=== PATIENT | female | born 1960 | race Caucasian/White ===

== ENCOUNTER → 2021-05-12 11:01 | Outpatient (CLI) | payer OTHER, SELFPAY ==
[2021-05-12 15:05] LABS: COVID19 -Nasal RAPID Negative (Negative)
== END ==
PROVIDERS: Visit Provider Nurse Practitioner Family
DX: Z01.812 Encounter for preprocedural laboratory examination (principal); Z20.822 Contact with and (suspected) exposure to COVID-19
CPT/HCPCS: 87635

== ENCOUNTER 2021-05-13 06:00 | Observation (INO) | payer OTHER, SELFPAY ==
[2021-05-06 07:12] VITALS: BMI 25.8
[2021-05-13] VITALS (11 sets, daily range): BP systolic 121–165; BP diastolic 69–92; PULSE 60–76; RESP 12–19; TEMP 36.4–36.7; O2SAT 96–100; BMI 25.8
--- NOTE | 2021-05-13 06:30 | DI.RAD.S_ITS ---
PROCEDURE: XR HIP W PEL IF DONE LT 2V INDICATIONS: MICHELLE intraoperative TECHNIQUE: Four nondiagnostic intraoperative fluoroscopic views of the left hip COMPARISON: None. FINDINGS: Nondiagnostic intraoperative fluoroscopic views of the left hip demonstrate left total hip arthroplasty changes. Hardware appears to be in appropriate alignment. No periprosthetic lucency or fracture identified. IMPRESSION: Expected appearance of left MICHELLE. Dictated by: Jose Antonio Jane M.D. on 05/13/2021 at 11:05 Approved by: Jose Antonio Jane M.D. on 05/13/2021 at 11:06
[2021-05-13] MEDS: VANCOMYCIN 1,000 MG/200 ML PIGGYBACK 200 MG IV (07:00)
[2021-05-13] MEDS: CELECOXIB 200 MG CAPSULE PO (07:05)
[2021-05-13] MEDS: ACETAMINOPHEN 325 MG TABLET 975 MG PO (07:05)
[2021-05-13] MEDS: LACTATED RINGERS 1,000 ML 84 ML IV ×2 (07:20→09:09)
--- NOTE | 2021-05-13 07:44 | PM.PREOP ---
Pre-operative Note Interval Note History & Physical reviewed/Exam performed by Physician: Yes Changes to H&P: No
--- NOTE | 2021-05-13 07:45 | PM.PREOP ---
Pre-operative Note COVID-19 COVID-19 status: Negative Interval Note History & Physical reviewed/Exam performed by Physician: Yes Changes to H&P: No
--- NOTE | 2021-05-13 07:45 | PM.OP.1 ---
Operative Date/Time/Diagnoses Date of procedure: 05/13/21 Time of procedure: 07:55 Pre-op diagnosis: left hip OA Post-op diagnosis: same Procedure & Clinicians Same procedure as scheduled: Yes Surgeon: Halima Villanueva Performance Reporter: Shiloh Fuller Anesthesia Type: General and Spinal Operative Notes Findings: Severe OA, good stability, adequate bone Closure Type: primary Specimen(s): none sent Prosthetic devices, grafts, tissues, transplants, or devices: Villanueva and nephew standard anthology size 7, 52 mm R3 cup, neutral poly liner, +0 36 mm Oxinium head Estimated Blood Loss (mL): 250 Blood products transfused: none Procedure in detail: The patient was brought to the operating room. Patient was carefully positioned in the supine position. Time-out was performed and antibiotics were given. Anesthesia was induced. She was positioned in the on the table in order to allow hyperextension of the hip. The Left lower extremity was prepped and draped in a standard sterile fashion. An anterior left hip incision was made 1 fingerbreadth lateral to the anterior superior iliac spine and extended distally towards the greater trochanter. Dissection was carried out through skin and subcutaneous tissues. The skin and subcutaneous tissues were carefully injected with Lidocaine with epi. Superficial hemostasis was achieved. The fascia over the tensor fascia rj was defined and incised with a knife. Two Allis clamps were used to grasp the fascia. Tensor fascia rj was retracted laterally. A gelpi retractor was placed. Dissection was carried out down along the neck. The circumflex vessels were carefully identified and cauterized with the Aqua Mantis. There was good visualization of the femoral neck. A Cobra was placed superior to the neck and the gluteus fibers were carefully stripped from that superior aspect of the capsule. A 2nd retractor was placed along the inferior aspect of the neck. The rectus insertion along the capsule was partially released. A 3rd retractor that was then gently placed over the rim of the acetabulum under the rectus. Capsule was carefully incised and released from the intertrochanteric line circumferentially superior to the mid sagittal line and inferiorly to the mid sagittal line until the lesser trochanter was palpable. A tag stitch was placed both in the superior and inferior limb of the capsular insertion. Along the acetabulum capsule was also released up to the mid sagittal 12:00 position. A portion of the labrum was resected. A saw was used to perform an osteotomy at the level of the intertrochanteric line and the junction of the superior femoral neck leaving approximately 1 finger breath of residual inferior neck above the lesser trochanter. A 2nd cut was made along the femoral neck at the base of the head and a napkin ring of neck was removed. Corkscrew was placed in the femoral head and the head was removed without difficulty. Retractors were then repositioned around the acetabulum. Residual labrum was resected and additional osteophytes were removed. A reamer that was 4 mm below the templated size was placed by hand in the acetabulum and it was reamed to centralize the acetabulum. It was then reamed up to 2 under the templated size and fluoroscopy was brought in to confirm the position of the reaming and depth of reaming. I reamed 1 under the anticipated size and touched the rim with line to line reaming. A trial cup was placed and noted that it was appropriately sized and fluoroscopy confirmed position and depth. The component was open and inserted without difficulty fluoroscopic imaging was used to confirm that the cup had been adequately seated and was well positioned. It was further stabilized with a screw. Neutral poly liner was placed. The cup was tested and noted to be stable. Attention was then directed to the femur. The femur was gently hyperextended additional capsular release was performed as needed in order to allow adequate visualization of the proximal femur with elevation of the femur. Patient was placed in a hyperextended slightly adducted position with maximum external rotation. Box osteotome was used to check for any residual neck as well as sclerotic bone along the trochanter. Carlyle pepper was placed in the femur. Additional broaching was performed. Canal finder was used to determine the alignment of the canal and position. Size 1 broach was placed. The canal was then appropriately broached up to the templated size as long as there was adequate stability of the broach and serial advancement of the broach without excessive impingement. Specific attention was directed at avoiding varus attempting to direct the distal aspect of the broach more anteriorly and avoiding excessive anteversion. Trial reduction showed acceptable range of motion, good stability, no posterior impingement, restorationist of leg length and appropriate lateral shuck. I also hyperflexed the hip and checked that there was no impingement anteriorly and there was good stability with flexion, adduction and internal rotation. Marcaine and Exparel were injected. The stem was placed without difficulty. Repeat trial reduction and x-ray showed acceptable overall position, length, and no evidence of the femoral fracture. Final head was placed. Wound was meticulously irrigated with normal saline. The hip was reduced and additional Exparel and Marcaine were injected. The capsule was closed with interrupted nonabsorbable sutures. The fascia of the tensor was closed with interrupted and running Vicryl. No drain was placed. Any tensor fascia rj muscle that appeared to be contused or injured which was a minimal amount was carefully resected. Capsule around the tensor was injected with Exparel and Marcaine. The skin was closed with barbed stitches for the subcutaneous tissue and skin. We also used surgical glue. The wound was dressed sterilely. Brief Betadine soak was also used and was meticulously irrigated with normal saline. Patient was transferred to recovery room in satisfactory condition. Complications: none Post-operative Condition: stable Disposition: Acute Care Plan for aftercare: The patient will be maintained on a standard total hip replacement protocol with weight bearing as tolerated and anterior hip precautions. The patient will receive Aspirin and sequential compression devices for DVT prophylaxis. The patient will be discharged home when safe for the home environment.
[2021-05-13] MEDS: CEFAZOLIN 2 GM/20 ML SYRINGE IV ×2 (08:10→15:58)
[2021-05-13] MEDS: TRANEXAMIC ACID 1,000 MG VIAL 2000 MG INJ ×2 (08:12→10:07)
--- NOTE | 2021-05-13 08:38 | SUR.OPER ---
Supine on padded [place] table with bilateral legs secured in padded positioning boots and suspended in positioning spars, operative leg in traction per surgeon. Head on one pillow. Arm on non-operative side secured on padded armboard <90 degrees abduction. Arm on operative side padded and resting across chest then secured with tape over sheet. Padded perineal post in place per surgeon.
[2021-05-13] MEDS: BUPIVACAINE LIPOSOME 266 MG/20 ML VIAL INJ (08:44)
[2021-05-13] MEDS: BUPIVACAINE 0.25% (PF) 60 ML, EPINEPHrine 0.3 MG INJ (08:45)
--- NOTE | 2021-05-13 10:00 | DI.RAD.S_ITS ---
PROCEDURE: XR HIP W PEL IF DONE LT 2V INDICATIONS: LEFT TOTAL HIP TECHNIQUE: AP pelvis and lateral view of the left hip acquired. COMPARISON: [facility], MARIELA, XR HIP W PEL IF DONE LT 2V, 05/13/2021, 10:12. FINDINGS: Bones: Patient is status post total left hip arthroplasty, with hardware components in expected positions. The hip joint appears congruent. The visualized bony structures appear intact. Severe degenerative arthritis of the right hip. Soft tissues: Overlying postoperative changes are noted. No suspicious soft tissue densities. IMPRESSION: Expected immediate postoperative appearance, status post total left hip arthroplasty. Severe degenerative arthritis of the right hip. Dictated by: Milan Parikh M.D. on 05/13/2021 at 12:55 Approved by: Milan Parikh M.D. on 05/13/2021 at 12:56
--- NOTE | 2021-05-13 11:08 | SUR.PHASEI ---
Addendum entered by Tegan Gooden R.N. 05/13/21 11:09: Pt transported in stable condition by ZAHEER Wilhelm and KATT Madison to room 217 Original Note: Report to Graeme Hager
[2021-05-13] MEDS: LACTATED RINGERS 1,000 ML 125 ML IV ×2 (11:40→19:58)
[2021-05-13] MEDS: OXYCODONE IR 5 MG TABLET PO (11:56)
[2021-05-13] MEDS: ONDANSETRON 4 MG ODT PO ×2 (11:56→16:00)
[2021-05-13] MEDS: IBUPROFEN 400 MG TABLET PO ×2 (12:48→20:49)
[2021-05-13] MEDS: TRAMADOL 50 MG TABLET PO (12:48)
[2021-05-13] MEDS: OXYCODONE IR 10 MG TABLET PO (14:21)
[2021-05-13] MEDS: ACETAMINOPHEN 325 MG TABLET 650 MG PO ×2 (14:21→20:49)
--- NOTE | 2021-05-13 14:45 | PT.IIE ---
Current Diagnoses Bilateral primary osteoarthritis of hip (05/13/21) Surgery Performed Operation Date: 05/13/21 07:45 Actual Procedures p Total Hip Arthroplasty/Anterior Approach(Left) - Halima Villanueva MD Medical History (Last Updated 05/06/21 @ 07:41 by Laney Betts RN) Anesthesia Depression HTN (hypertension) Osteoarthritis Physical Therapy Inpatient Evaluation/Re-Eval M1 PT/OT-IP Prior Functional Status Start: 05/13/21 12:10 Freq: NEEDED Status: Active Protocol: Document 05/13/21 14:45 AW (Rec: 05/13/21 15:10 AW [id number]) Medical Review Prior Functional Status Medical History Reviewed Yes Communication WNL Mobility and Gait Pt is independently mobile without assistive device. Activities of Daily Living and IADL's Independent with all ADL and IADL's Prior Functional Level (Other details) Pt was pushed by her dog and fell from her deck in 2019. She severely fractured her proximal humerus. She was treated surgically and PT was successful. It's better than before. Pt denies any falls since that time. Social History Household Members spouse Living Arrangements House Number of Floors (Floors) One Floor Number of Stairs To Enter/Railing? 3 ESTEE with no rail at the front door. 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 She has an adjustable bed. Pt lives in [place] with her spouse, Prince. Spouse has taken 5 weeks off work to assist the pt. 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 M2 PT-IP Current Condition Start: 05/13/21 12:10 Freq: NEEDED Status: Active Protocol: Document 05/13/21 14:45 AW (Rec: 05/13/21 15:10 AW [id number]) Physical Therapy Current Condition Current Condition Evaluation Date 05/13/21 Treatment Diagnosis L MICHELLE with anterior approach; impaired mobility and gait Onset Date 05/13/21 M3 PT-IP Subjective Start: 05/13/21 12:10 Freq: NEEDED Status: Active Protocol: Document 05/13/21 14:45 AW (Rec: 01/11/22 15:10 AW [id number]) Subjective Physical Therapy Visit Type Type Initial Evaluation Visit Start Time 14:18 Visit Stop Time 14:45 Total Visit Minutes 27 Notes Pt's spouse was present and attentive throughout. Number of TURBINATED BONE GRINDER Visits 0 Physical Therapy Visit Comments Patient Comments Pt is feeling uncomfortable in the bed and would like to get up. Patient Goals Return home with spouse support. Therapy Pain Assessment Pain When Pain Assessed During Mobility Pain Present Pain Present Pain Reported Location Left Hip Intensity 5 Pain Management Techniques Apply Cold,Re-positioning, Timing of Activity with Medications M4 PT-IP Mobility and Gait Start: 05/13/21 12:10 Freq: NEEDED Status: Active Protocol: Document 05/13/21 14:45 AW (Rec: 05/13/21 15:10 AW [id number]) PT-Bed Mobility Assessment Supine to Sit Supine to Sit Standby Assistance,Head of Bed Elevated Scooting Scooting to Edge of Bed Standby Assistance PT-Transfer Assessment Sit to and From Stand Sit to and from Stand Contact Guard Assistance,1 Person Assistance,Use of Upper Extremities Equipment Transfer Assistive Device Gait Belt,Front Wheeled Walker Orthotic/Prosthetic Devices or Brace: No Transfers Transfer Destination Bed,Chair Transfer Technique Stand Step Pivot Transfer Ability Level of Assist Standby Assistance Comments Mobility Comments Pt was lying in the bed as PT arrived. BP supine was 148/78 HR 68 SpO2 99% on room air. PT educated pt on anterior hip precautions including bed mobility. Pt completed supine to sit SBA, exiting the bed to her right. She usually exits to her left but states she can easily change her bed setup at home. She stood CGA and steadied herself with FWW. She shifted weight laterally as PT educated on WBAT. Pt walked around the room a total of 25 feet CGA and then transferred to the chair SBA. She complained of some lightheadedness. BP was stable at 144/80 HR 67. Pt completed sit to stand SBA and transferred to sitting EOB SBA. Sit <> supine SBA and then pt requested to sit EOB. Pt was left with ice packs applied to anterior hip, bed alarm on least sensitive setting, call light and tray table in reach. Her spouse remained in the room. Gait Assessment Gait Gait Assistance Required: Contact Guard Assist Distance (Feet) 25 Able to Maintain Weight Bearing Status Yes During Gait Assistive Devices Assistive Device Gait Belt,Front Wheeled Walker Orthotic/Prosthetic Devices or Brace: No Gait Deviations General Gait Pattern Antalgic,Decreased Stride Length,Decreased Feet Clearance,Flexed Trunk,Step-to Gait Factors Limiting Gait Function Factors Limiting Gait Function Decreased Strength,Limited Range of Motion,Pain Comments Gait Comments Pt ambulated safely with FWW and short step length to avoid excessive hip extension. She was careful to lead with right foot when backing up to the chair. Stair Climbing Assessment Comments Stair Climbing Comments Not assessed. PT-Balance Assessment Sitting Balance and Reactions Static Sitting Balance Ability Normal Dynamic Sitting Balance Ability Good Standing Balance and Reactions Static Standing Balance Ability Good Dynamic Standing Balance Ability Good Device Used FWW M5 PT-IP Objective Assessments Start: 05/13/21 12:10 Freq: NEEDED Status: Active Protocol: Document 05/13/21 14:45 AW (Rec: 05/13/21 15:10 AW [id number]) Orientation Orientation/Cognition Level of Alertness Alert Orientation Name,Day of Week,Place, Situation Language Function Ability No Deficits Noted Safety Awareness Understands Safety Issues Memory Description No Deficits Noted Gross Range of Motion Lower Extremity ROM Assessment Left Impaired Strength Lower Extremity Strength Assessment Left Impaired Comments Strength Comments RLE grossly 4+/5 to 5/5 Sensation Assessment Sensation Gross Sensation WNL Comments Sensation Comments Pt denied sensation disturbance BLE. M6 PT-IP Treatment Start: 05/13/21 12:10 Freq: NEEDED Status: Active Protocol: Document 05/13/21 14:45 AW (Rec: 05/13/21 15:10 AW [id number]) Physical Therapy Treatment Exercises Exercises Ankle Pumps,Gluteal Sets,Heel Slides Education Education Provided Precautions,Weight Bearing Status,Post-Op Packet,Safety Other Treatments Other Treatment Performed Educated pt and her spouse on PT plan of care, weightbearing status, anterior hip precautions, and safe use of FWW. M7 PT-IP Assessment and Plan Start: 05/13/21 12:10 Freq: NEEDED Status: Active Protocol: Document 05/13/21 14:45 AW (Rec: 05/13/21 15:10 AW [id number]) PT Summary Assessment and Plan Potential Rehabilitation Potential Good Status of Condition at Evaluation Evolving Summary Impairments Pain,ROM,Strength,Balance,Bed Mobility,Transfers,Gait Assessment Summary Priscilla is an active 61 yo woman seen for PT evaluation on POD0 following L MICHELLE with anterior approach. 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 Her has taken time off work to assist her at discharge. She required SBA /CGA for mobility with FWW on assessment and was limited mildly by nausea. PT anticipates she will progress her mobility during her hospital stay and be safe to discharge home with assist and outpatient PT once medically stable. Goals Bed Mobility Goal Independent Transfer Goal Independent,Front Wheeled Walker Gait Goal Independent,Front Wheel Walker Gait Distance 150 Other Goals - up/down 4 steps with R rail ascending SBA Days to Meet Goals 2 Frequency of Treatment Frequency Of Treatment Twice a Day Treatment Plan Physical Therapy Treatment Plan Bed Mobility Training,Transfer Training,Gait Training, Therapeutic Exercise,Balance Retraining,Post Op Education, Discharge Planning,Hot or Cold Pack Other Recommendations and Next Treatment review precautions; ther ex; Focus gait training with FWW; stairs with participating Precautions Anterior Hip Precautions No Hip Extension,No Hip External Rotation Weight Bearing Status Weight Bearing Status Weight Bear as Tolerated Recommendations To Nursing Amount of Assist Needed Standby Assistance,1 Person Assist Discharge Recommendations PT Discharge Recommendations Home with Assistance, Outpatient PT Transportation Needs at Discharge Private Vehicle
[2021-05-13] MEDS: METOCLOPRAMIDE 10 MG/2 ML INJ IV (16:56)
[2021-05-13] MEDS: DOCUSATE 100 MG CAPSULE PO (20:49)
[2021-05-13] MEDS: ASPIRIN EC 81 MG TABLET PO (20:49)
[2021-05-13] MEDS: SODIUM CHLORIDE 0.9% FLUSH 10 ML IV (20:49)
[2021-05-14] MEDS: CEFAZOLIN 2 GM/20 ML SYRINGE IV (00:21)
[2021-05-14] MEDS: IBUPROFEN 400 MG TABLET PO ×3 (00:21→09:41)
[2021-05-14 00:25] VITALS: BP 122/70; PULSE 67; RESP 18; TEMP 36.2; O2SAT 97
[2021-05-14] MEDS: LACTATED RINGERS 1,000 ML 125 ML IV (04:09)
[2021-05-14 04:10] VITALS: BP 128/78; PULSE 72; RESP 18; TEMP 36.5; O2SAT 98
[2021-05-14 06:16] LABS: Hematocrit 32.5 % (36-46); Hemoglobin 11.1 g/dL (12.0-16.0)
[2021-05-14 08:00] VITALS: BP 136/79; PULSE 70; RESP 16; TEMP 36.8; O2SAT 99
--- NOTE | 2021-05-14 09:11 | P.DS_ITS ---
History of Present Illness History of Present Illness Date Patient Seen: 05/14/21 Time Patient Seen: 09:11 Chief complaint: LT MICHELLE *OPB* Narrative: Priscilla presented to Dr Villanueva with chronic left hip pain and dysfunction that was refractory to conservative management. She elected to undergo total hip arthroplasty. La standard anthology size 7, 52 mm R3 cup, neutral poly liner, +0 36 mm Oxinium head Estimated Blood Loss (mL): 250 Blood products transfused: none The patient will be maintained on a standard total hip replacement protocol with weight bearing as tolerated and anterior hip precautions. The patient will receive Aspirin and sequential compression devices for DVT prophylaxis. The patient will be discharged home when safe for the home environment. Discharge Providers Provider Date of admission: 05/13/2021 Discharge Date: 05/14/21 Primary care physician: Doctor Arnold MD Consults: 05/13/21 06:30 Consult to Anesthesiology Routine Comment: Consulting Provider: Anesthesiologist Reason for consultation: Regional block for post operative pain control 05/13/21 11:10 Consult to Discharge Planning Routine Comment: Consult to Physical Therapy Evaluate & Treat Comment: Physician Instructions: post op MICHELLE protocol Consult to Respiratory Therapy Evaluate & Treat Comment: Physician Instructions: Evaluate and treat Discharge provider: Shiloh Fuller PA-C Summary Hospital Course Discharge Diagnosis: s/p LEFT total hip arthroplasty, anterior approach Hospital Course: On POD#1 patient was awake, alert, and oriented x 3. No N/V, eating without difficulty. Good pain control with ibuprofen, acetaminophen, and oxycodone. Urinating without difficulty. Would like to go home with spouse. Has FWW for homegoing and outpt therapy pending. Status at Discharge Cognitive/behavioral status at discharge: oriented, at baseline, oriented and calm Functional status at discharge: uses cane/walker Exam Vital Signs (past 8 hours): - 05/14/21 04:10 Temperature 97.7 F Pulse Rate 72 Respiratory Rate 18 Blood Pressure 128/78 Pulse Oximetry 98 Oxygen Delivery Method Room Air Oxygen Flow Rate 0 Narrative Exam Narrative: 5/5 strength in quadriceps, plantarflexion, dorsiflexion bilaterally. Sensation to light touch intact throughout BLE. Calves soft, compressible, and nontender; no palpable cords or masses. Objective Labs Result Diagrams: 05/14/21 05:44 Labs: Laboratory Results - last 24 hr 05/14/21 05:44 Hgb 11.1 L Hct 32.5 L PFSH Medical History (Updated 05/06/21 @ 07:41 by Laney Betts RN) Anesthesia Depression HTN (hypertension) Osteoarthritis Surgical History (Updated 05/14/21 @ 09:04 by Shiloh Fuller PA-C) History of hysterectomy (2007) Hx of shoulder surgery (~2019) Hx of tonsillectomy Social History household members: spouse Smoking Status: Never smoker alcohol intake: current Discharge Assessment & Plan Assessment and Plan Assessment: 1) POD#1 s/p LEFT total hip arthroplasty, anterior approach. Recovery as expected. 2) Expected post-operative blood loss anemia. No intervention needed at this time. Plan of Treatment: Continue supportive care. Follow up in office as scheduled. Discharge Plan Discharge Plan Patient Disposition: Home Discharge orders & Medications Discharge Orders: Discharge (Order); Ordered 05/14/21 Ordered By: Shiloh Fuller Prescriptions: New oxycodone 5 mg Tablet 5 mg PO Q4-6H MDD 30 mg PRN (Reason: severe pain (scale score 7-10)) Qty: 20 0RF acetaminophen 325 mg Tablet 650 mg PO TID MDD 4000 mg PRN (Reason: fever or pain) Qty: 90 0RF aspirin 81 mg Tablet,Delayed Release (Dr/Ec) 81 mg PO BID Qty: 120 0RF docusate sodium 100 mg Capsule 100 mg PO BID PRN (Reason: narcotic related constipation) Qty: 60 0RF Continued estradiol 0.05 mg/24 hr Patch Semiweekly 1 patch TRANSDERMAL 2XW 0RF Rx Instructions: apply 1 patch for 3 days alternating with 1 patch for 4 days each week for 3 wks per 4-wk cycle losartan-hydrochlorothiazide 50-12.5 mg Tablet 1 tab PO DAILY 0RF Follow up/Referrals: Miscellaneous,DoctorMD [Primary Care Provider] - Halima Villanueva MD [Physician] - (Follow up at [facility] as scheduled w/ Jade Ramsay PA-C on 05/23/2021 @ 1400.) Diet/Activity/Treatments Diet: Diet as Tolerated Activity: Full weight-bearing, anterior hip precautions. Ambulate w/ front- wheeled walker. Outpatient PT as scheduled. Cold/Heat Therapy: Ice to affected area for 15 minutes at a time as needed for pain. Skin/Wound/Dressing Care Report to your healthcare provider any signs of infection, such as:: chills, fever, night sweats, increased pain, unusual drainage and unusual redness Dressing: Leave Aquacel dressing in place until follow up appointment. May shower with dressing in place, pat dry immediately after. No bathing or otherwise soaking incision. Call office if dressing becomes wet inside. Visit Report/Discharge Packet Instructions: DI for Hip Replacement, DI for Constipation, How to Prevent Falls, DI for Taking Pain Medication Stand Alone Forms: Surgery Discharge Discharge Data Primary Care Provider: Miscellaneous,Doctor Attending Provider: Halima Villanueva
[2021-05-14] MEDS: hydroCHLOROthiazide 25 MG TABLET 12.5 MG PO (09:41)
[2021-05-14] MEDS: ACETAMINOPHEN 325 MG TABLET 650 MG PO (09:41)
[2021-05-14] MEDS: DOCUSATE 100 MG CAPSULE PO (09:41)
[2021-05-14] MEDS: ASPIRIN EC 81 MG TABLET PO (09:42)
[2021-05-14] MEDS: LOSARTAN 50 MG TABLET PO (09:42)
--- NOTE | 2021-05-14 10:15 | PT.IPTN ---
Current Diagnoses Bilateral primary osteoarthritis of hip (05/13/21) Presence of left artificial hip joint (05/13/21) Surgery Performed Operation Date: 05/13/21 07:45 Actual Procedures p Total Hip Arthroplasty/Anterior Approach(Left) - Halima Villanueva MD Physical Therapy Treatment Note M2 PT-IP Current Condition Start: 05/13/21 12:10 Freq: NEEDED Status: Discharge Protocol: Document 05/14/21 09:45 SP (Rec: 05/14/21 18:25 SP [id number]) Physical Therapy Current Condition Current Condition Evaluation Date 05/13/21 Treatment Diagnosis L MICHELLE with anterior approach; impaired mobility and gait Onset Date 05/13/21 M3 PT-IP Subjective Start: 05/13/21 12:10 Freq: NEEDED Status: Discharge Protocol: Document 05/14/21 09:45 SP (Rec: 05/14/21 18:25 SP [id number]) Subjective Physical Therapy Visit Type Type Treatment Note Visit Start Time 09:45 Visit Stop Time 10:15 Total Visit Minutes 30 Notes Pt's spouse was present and completed caregiver training with providing assist required throughout tx. Number of CHIEF ENGINEER'S HELPER Visits 1 Physical Therapy Visit Comments Patient Comments Pt willing to work with therapy. She reports more sore than pain anterior L thigh. Patient Goals Return home with spouse support. Therapy Pain Assessment Pain When Pain Assessed During Mobility Pain Present Pain Present Pain Reported Location Left Hip Scale Used reported soreness Pain Management Techniques Distraction,Re-positioning, Timing of Activity with Medications M4 PT-IP Mobility and Gait Start: 05/13/21 12:10 Freq: NEEDED Status: Discharge Protocol: Document 05/14/21 09:45 SP (Rec: 05/14/21 18:25 SP [id number]) PT-Bed Mobility Assessment Supine to Sit Supine to Sit Standby Assistance Scooting Scooting to Edge of Bed Standby Assistance PT-Transfer Assessment Sit to and From Stand Sit to and from Stand Contact Guard Assistance,Use of Upper Extremities Equipment Transfer Assistive Device Gait Belt,Front Wheeled Walker Orthotic/Prosthetic Devices or Brace: No Transfers Transfer Destination Chair Transfer Technique pt ambulated w/ FWW Transfer Ability Level of Assist Standby Assistance Comments Mobility Comments Pt was elevated supine in bed when arrived. Reviewed precautions, recalled 2/2. Instructed post op HEP: AP, quad and glut set, HS with support of strap as needed. Completed supine>sit SBA with self repositioning of LLE itself. Sit>stand CGA initially w/ FWW. Progressed gait into hallway CGA>SBA w/ FWW to stairs, completed stair mgt and back to room approx 240 ft w/c follow but not needed, cued x1 stagger step R LE to maintain no hip ext with LLE, good self performance, requried brief stop stand rests x2 due to tiring, decreased strength/ endurance. CHIEF ENGINEER'S HELPER managed IV pole . Pt returned to chair when arrived back in room, SBA. Pt is ok to return home with to assist her when medically cleared. She is already set up with outpt therapy. Gait Assessment Gait Gait Assistance Required: Contact Guard Assist Distance (Feet) 240 Able to Maintain Weight Bearing Status Yes During Gait Assistive Devices Assistive Device Gait Belt,Front Wheeled Walker Orthotic/Prosthetic Devices or Brace: No Gait Deviations General Gait Pattern Antalgic,Decreased Stride Length,Decreased Feet Clearance,Step-to Gait Factors Limiting Gait Function Factors Limiting Gait Function Decreased Strength,Limited Range of Motion,Pain Comments Gait Comments Pt ambulated safely with FWW and short step length to avoid excessive hip extension. She was careful to lead with right foot when backing up to the chair. Stair Climbing Assessment Evaluation Level of Assist On Stairs Contact Guard Assistance Devices Stair Climbing Assistive Devices Right Railing Technique/Endurance Stair Climbing Direction Ascend and Descend Stair Climbing Technique Step to Step Number of Steps Climbed 3 Stair Climbing Set # Repetitions (reps) 1 Comments Stair Climbing Comments Pt's stated has 3 stairs to get into house through garage, no HR at front enterance. Pt completed ascend / descend step to patterning 2 stairs B UE on R HR CGA via initially. CHIEF ENGINEER'S HELPER provided SPC last step for LUE and pt stated was alot easier. Family has a SPC can borrow for ease stair mgt. Descend 3 stair L HR and SPC in RUE CGA, stable. PT-Balance Assessment Sitting Balance and Reactions Static Sitting Balance Ability Normal Dynamic Sitting Balance Ability Normal Standing Balance and Reactions Static Standing Balance Ability Good Dynamic Standing Balance Ability Good Device Used FWW M5 PT-IP Objective Assessments Start: 05/13/21 12:10 Freq: NEEDED Status: Discharge Protocol: Document 05/13/21 14:45 AW (Rec: 05/13/21 15:10 AW [id number]) Orientation Orientation/Cognition Level of Alertness Alert Orientation Name,Day of Week,Place, Situation Language Function Ability No Deficits Noted Safety Awareness Understands Safety Issues Memory Description No Deficits Noted Gross Range of Motion Lower Extremity ROM Assessment Left Impaired Strength Lower Extremity Strength Assessment Left Impaired Comments Strength Comments RLE grossly 4+/5 to 5/5 Sensation Assessment Sensation Gross Sensation WNL Comments Sensation Comments Pt denied sensation disturbance BLE. M6 PT-IP Treatment Start: 05/13/21 12:10 Freq: NEEDED Status: Discharge Protocol: Document 05/14/21 09:45 SP (Rec: 05/14/21 18:25 SP [id number]) Physical Therapy Treatment Exercises Exercises Ankle Pumps,Gluteal Sets,Quad Sets,Heel Slides Education Education Provided Precautions,Weight Bearing Status,Post-Op Packet,Safety Other Treatments Other Treatment Performed Continued education on anterior hip precautions and safe LE positioning durign gait use of FWW. M7 PT-IP Assessment and Plan Start: 05/13/21 12:10 Freq: NEEDED Status: Discharge Protocol: Document 05/14/21 09:45 SP (Rec: 05/14/21 18:25 SP [id number]) PT Summary Assessment and Plan Potential Rehabilitation Potential Good Status of Condition at Evaluation Evolving Summary Impairments Pain,ROM,Strength,Balance,Bed Mobility,Transfers,Gait Progress Towards Goals Progressing Toward Goals,Slow Progress due to Activity Tolerance Assessment Summary Pt able to mobilize CG>SBA using FWW, CGA during stair mgt. Pt is ok to return home with to assist her as needed. She is set up with outpt PT when medically cleared. Goals Bed Mobility Goal Independent Transfer Goal Independent,Front Wheeled Walker Gait Goal Independent,Front Wheel Walker Gait Distance 150 Other Goals - up/down 4 steps with R rail ascending SBA Days to Meet Goals 2 Frequency of Treatment Frequency Of Treatment Twice a Day Treatment Plan Physical Therapy Treatment Plan Bed Mobility Training,Transfer Training,Gait Training, Therapeutic Exercise,Balance Retraining,Post Op Education, Discharge Planning,Hot or Cold Pack Other Recommendations and Next Treatment review precautions; ther ex; Focus gait training further distance with FWW Precautions Anterior Hip Precautions No Hip Extension,No Hip External Rotation Other Precautions Good recall to precautions, cued education small little steps during pivot to R to maintain no ER with LLE, good understanding. Weight Bearing Status Weight Bearing Status Weight Bear as Tolerated Recommendations To Nursing Amount of Assist Needed Standby Assistance Discharge Recommendations PT Discharge Recommendations Home with Assistance, Outpatient PT Transportation Needs at Discharge Private Vehicle
[2021-05-14] MEDS: INFLUENZA VACCINE QIV 0.5 ML SYRINGE IM (10:39)
--- NOTE | 2021-05-14 14:05 | PC.NURSE ---
Discharge: Pt feels ready for d/c home. Seen by PA and given instructions, seen by PT and passed to be able to go home. Nausea has resolved and tolerates diet w/out problems. Po pain meds are effective. Voids w/out diff. Reviewed d/c packet and questions answered. Denies any problems at time of d/c to home. D/c to home with spouse.
== END 2021-05-14 11:50 | disposition home or self-care (01) ==
LOC: OR 06:02 → AC 06:07
PROVIDERS: Admitting Provider Orthopaedic Surgery; Referring Provider Orthopaedic Surgery; Visit Provider Orthopaedic Surgery
PROC: (CPT 27130; principal; 2021-05-13 07:45)
DX: M16.12 Unilateral primary osteoarthritis, left hip (principal); Z23 Encounter for immunization; I10 Essential (primary) hypertension
CPT/HCPCS: 27130; 36415; 73502; 76000; 85014; 85018; 90471; 90656; 97116; 97161; 97530; C1776; G0378; C9290; J0171; J0690; J2250; J2704; J2765; J3010; Q2038

== ENCOUNTER 2022-06-17 07:13 | Day surgery (SDC) | payer OTHER, SELFPAY ==
[2021-05-13 11:15] VITALS: BMI 25.8
[2022-06-09 13:52] VITALS: BMI 28.2
[2022-06-17] VITALS (9 sets, daily range): BP systolic 152–182; BP diastolic 79–99; PULSE 61–79; RESP 9–16; TEMP 36.1–36.6; O2SAT 92–100; BMI 28.2
--- NOTE | 2022-06-17 | DI.RAD.S_ITS ---
PROCEDURE: XR HIP W PEL IF DONE RT 2V INDICATIONS: intra op TECHNIQUE: Intraoperative fluoroscopic images of pelvis and right hip acquired. COMPARISON: [facility], CR, XR HIP W PEL IF DONE LT 2V, 05/13/2021, 10:34. FINDINGS: Intraoperative fluoroscopic images shows right total hip arthroplasty in progress. IMPRESSION: Fluoro guidance was provided intraoperatively for right total hip arthroplasty. Dictated by: Felipe Vo M.D. on 06/17/2022 at 11:47 Approved by: Felipe Vo M.D. on 06/17/2022 at 11:48
--- NOTE | 2022-06-17 06:00 | DI.RAD.S_ITS ---
PROCEDURE: XR HIP W PEL IF DONE RT 2V INDICATIONS: prosthesis placement TECHNIQUE: AP pelvis and lateral view of the right hip acquired. COMPARISON: [facility], MARIELA, XR HIP W PEL IF DONE RT 2V, 06/17/2022, 11:34. [facility], [place]A, XR HIP W PEL IF DONE LT 2V, 05/13/2021, 10:34. FINDINGS: Bones: Interval right hip arthroplasty placement, without hardware complication. Soft tissues: Overlying postoperative changes are noted. No suspicious soft tissue densities. IMPRESSION: Interval right hip arthroplasty placement, without hardware complication. Dictated by: Venkatesh Stringer M.D. on 06/17/2022 at 13:56 Approved by: Venkatesh Stringer M.D. on 06/17/2022 at 13:57
[2022-06-17] MEDS: VANCOMYCIN 1,000 MG/200 ML PIGGYBACK 200 MG IV (07:54)
[2022-06-17] MEDS: LACTATED RINGERS 1,000 ML 42 ML IV (07:54)
[2022-06-17] MEDS: ACETAMINOPHEN 325 MG TABLET 975 MG PO (07:55)
[2022-06-17] MEDS: PREGABALIN 75 MG CAPSULE PO (07:56)
[2022-06-17] MEDS: SCOPOLAMINE 1 PATCH TOP (07:56)
--- NOTE | 2022-06-17 08:10 | SUR.OPER ---
Supine on padded [place] table with bilateral legs secured in padded positioning boots and suspended in positioning spars, operative leg in traction per surgeon. Head on one pillow. LEFT ARM secured on padded armboard <90 degrees abduction. Arm on RIGHT padded and resting across chest then secured with tape over sheet. Padded perineal post in place per surgeon.
[2022-06-17 08:22] LABS: COVID19 -Nasal RAPID Negative (Negative)
--- NOTE | 2022-06-17 08:43 | PM.PREOP ---
Pre-operative Note Interval Note History & Physical reviewed/Exam performed by Physician: Yes Changes to H&P: No
--- NOTE | 2022-06-17 08:44 | PM.OP.1 ---
Operative Date/Time/Diagnoses Date of procedure: 06/17/22 Time of procedure: 09:00 Pre-op diagnosis: Right hip osteoarthritis Post-op diagnosis: same Procedure & Clinicians Procedure: Right total hip arthroplasty anterior approach Same procedure as scheduled: Yes Indications: The patient has had progressively worsening right hip pain with radiographic changes consistent with arthritis. Non-operative management has failed and the patient has requested total hip replacement. The risks, benefits and alternatives to surgery were discussed with the patient prior to proceeding. Risks discussed included, but were not limited to, failure to relieve pain, leg length discrepancy, dislocation, stiffness, infection, nerve damage, deep venous thrombosis, pulmonary embolism, stroke, coma, heart attack, permanent paralysis and , as well as the potential need for eventual revision of the prosthetic. Surgeon: Halima Villanueva Appellate Court Judge: Tyra Coburn Anesthesia Type: General and Spinal Operative Notes Findings: Severe right hip osteoarthritis, adequate stability and range of motion Closure Type: primary Specimen(s): none sent Prosthetic devices, grafts, tissues, transplants, or devices: Villanueva and nephew size 7 standard offset anthology, size 52 R3 cup, neutral poly liner,one 6.5 mm screw, 36 x -3 Oxinium femoral head Estimated Blood Loss (mL): 250 Blood products transfused: none Procedure in detail: The patient was brought to the operating room. Patient was carefully positioned in the supine position. Time-out was performed and antibiotics were given. Anesthesia was induced. She was positioned in the on the table in order to allow hyperextension of the hip. The right lower extremity was prepped and draped in a standard sterile fashion. An anterior right hip incision was made 1 fingerbreadth lateral to the anterior superior iliac spine and extended distally towards the greater trochanter. Dissection was carried out through skin and subcutaneous tissues. Superficial hemostasis was achieved. The fascia over the tensor fascia rj was defined and incised with a knife. Two Allis clamps were used to grasp the fascia. Tensor fascia rj was retracted laterally. A gelpi retractor was placed. Dissection was carried out down along the neck. The circumflex vessels were carefully identified and cauterized with the Aqua Mantis. There was good visualization of the femoral neck. A Cobra was placed superior to the neck and the gluteus fibers were carefully stripped from that superior aspect of the capsule. A 2nd retractor was placed along the inferior aspect of the neck. The rectus insertion along the capsule was partially released. A 3rd retractor that was then gently placed over the rim of the acetabulum under the rectus. Capsule was carefully incised and released from the intertrochanteric line circumferentially superior to the mid sagittal line and inferiorly to the mid sagittal line until the lesser trochanter was palpable. A tag stitch was placed both in the superior and inferior limb of the capsular insertion. Along the acetabulum capsule was also released up to the mid sagittal 12:00 position. A portion of the labrum was resected. A saw was used to perform an osteotomy at the level of the intertrochanteric line and the junction of the superior femoral neck leaving approximately 1 finger breath of residual inferior neck above the lesser trochanter. A 2nd cut was made along the femoral neck at the base of the head and a napkin ring of neck was removed. Corkscrew was placed in the femoral head and the head was removed without difficulty. Retractors were then repositioned around the acetabulum. Residual labrum was resected and additional osteophytes were removed. A reamer that was 4 mm below the templated size was placed by hand in the acetabulum and it was reamed to centralize the acetabulum. It was then reamed up to 2 under the templated size and fluoroscopy was brought in to confirm the position of the reaming and depth of reaming. I reamed 1 under the anticipated size. A trial cup was placed and noted that it was appropriately sized and fluoroscopy confirmed position and depth. The component was open and inserted without difficulty fluoroscopic imaging was used to confirm that the cup had been adequately seated and was well positioned. Neutral poly liner was placed. It was further stabilized with a single screw. The cup was tested and noted to be stable. Attention was then directed to the femur. The femur was gently hyperextended additional capsular release was performed as needed in order to allow adequate visualization of the proximal femur with elevation of the femur. Patient was placed in a hyperextended slightly adducted position with maximum external rotation. Box osteotome was used to check for any residual neck as well as sclerotic bone along the trochanter. [place] pepper was placed in the femur. Additional broaching was performed. Canal finder was used to determine the alignment of the canal and position. Size 1 broach was placed. The canal was then appropriately broached up to the templated size as long as there was adequate stability of the broach and serial advancement of the broach without excessive impingement. Specific attention was directed at avoiding varus attempting to direct the distal aspect of the broach more anteriorly and avoiding excessive anteversion. Trial reduction showed acceptable range of motion, good stability, no posterior impingement, hoahaoism of leg length and appropriate lateral shuck. I also hyperflexed the hip and checked that there was no impingement anteriorly and there was good stability with flexion, adduction and internal rotation. Marcaine and Exparel were injected. The stem was placed without difficulty. Repeat trial reduction and x-ray showed acceptable overall position, length, and no evidence of the femoral fracture. Final head was placed. Wound was meticulously irrigated with normal saline. The hip was reduced and additional Exparel and Marcaine were injected. The capsule was closed with interrupted nonabsorbable sutures. The fascia of the tensor was closed with interrupted and running Vicryl. No drain was placed. Any tensor fascia rj muscle that appeared to be contused or injured which was a minimal amount was carefully resected. Capsule around the tensor was injected with Exparel and Marcaine. The skin was closed with barbed stitches for the subcutaneous tissue and skin. We also used surgical glue. The wound was dressed sterilely. Brief Betadine soak was also used and was meticulously irrigated with normal saline. Patient was transferred to recovery room in satisfactory condition. Complications: none Post-operative Condition: stable Disposition: same day surgery Plan for aftercare: The patient will be maintained on a standard total hip replacement protocol with weight bearing as tolerated and anterior hip precautions. The patient will receive Aspirin and sequential compression devices for DVT prophylaxis. The patient will be discharged home when safe for the home environment.
[2022-06-17] MEDS: CEFAZOLIN 2 GM/100 ML PREMIX 100 ML IV ×2 (09:15→13:12)
[2022-06-17] MEDS: TRANEXAMIC ACID 1,000 MG VIAL 1000 MG INJ ×2 (09:20→11:28)
[2022-06-17] MEDS: BUPIVACAINE 0.5% W/ EPI (PF) 30 ML VIAL INJ (09:30)
[2022-06-17] MEDS: BUPIVACAINE LIPOSOME 266 MG/20 ML VIAL INJ (09:30)
[2022-06-17] MEDS: hydrOXYzine pamoate 25 MG CAPSULE PO (12:34)
--- NOTE | 2022-06-17 12:52 | SUR.PHASEI ---
Report called to
[2022-06-17] MEDS: ONDANSETRON 4 MG/2 ML INJ IV (13:00)
--- NOTE | 2022-06-17 13:02 | SUR.PHASEI ---
Patient reported nausea, medicated with zofran.
[2022-06-17] MEDS: LACTATED RINGERS 1,000 ML 125 ML IV (13:12)
--- NOTE | 2022-06-17 13:16 | SUR.PHASEI ---
Patient transferred to the floor with her belongings bag. IV patent. Right hip dressing CDI. Spouse present. Report given to CARO Haro.
[2022-06-17] MEDS: ACETAMINOPHEN 325 MG TABLET 650 MG PO (13:18)
[2022-06-17] MEDS: IBUPROFEN 400 MG TABLET PO (13:18)
--- NOTE | 2022-06-17 14:40 | PT.IIE ---
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) Hx of shoulder surgery (~2018) Hx of tonsillectomy Medical History (Last Updated 06/09/22 @ 14:21 by Laney Betts RN) Anesthesia COVID-19 virus infection (08/2021) Depression HTN (hypertension) Osteoarthritis Physical Therapy Inpatient Evaluation/Re-Eval M1 PT/OT-IP Prior Functional Status Start: 06/17/22 16:15 Freq: NEEDED Status: Discharge Protocol: Document 06/17/22 14:40 AB (Rec: 06/17/22 16:40 AB [id number]) Medical Review Prior Functional Status Medical History Reviewed Yes Communication able to make needs known Mobility and Gait pt stated that she is independent with all mobilities and ambulation without AD Social History Household Members spouse Living Arrangements House Number of Floors (Floors) One Floor Number of Stairs To Enter/Railing? 4 steps R rail ascending to enter from the garage Home Environment Standard Height Toilet,Tub/ Shower Home Equipment Front Wheel Walker,Straight Cane,Grab Bars In Shower Additional Social History Comment has adjustable bed without rails M2 PT-IP Current Condition Start: 06/17/22 16:15 Freq: NEEDED Status: Discharge Protocol: Document 06/17/22 14:40 AB (Rec: 06/17/22 16:40 AB [email or web address]) Physical Therapy Current Condition Current Condition Evaluation Date 06/17/22 Treatment Diagnosis s/p R MICHELLE anterior approach; difficulty in walking M3 PT-IP Subjective Start: 06/17/22 16:15 Freq: NEEDED Status: Discharge Protocol: Document 06/17/22 14:40 AB (Rec: 06/17/22 16:40 AB [id number]) Subjective Physical Therapy Visit Type Type Initial Evaluation Visit Start Time 14:40 Visit Stop Time 15:48 Total Visit Minutes 68 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 Physical Therapy Visit Comments Patient Comments agreeable to do PT Therapy Pain Assessment Pain When Pain Assessed At Rest Pain Present Pain Present Pain Reported Location Right hip Intensity 6 Scale Used Numeric (0 - 10) Pain Management Techniques Apply Cold,Modification of Treatment,Re-positioning, Timing of Activity with Medications M4 PT-IP Mobility and Gait Start: 06/17/22 16:15 Freq: NEEDED Status: Discharge Protocol: Document 06/17/22 14:40 AB (Rec: 06/17/22 16:40 AB [id number]) PT-Bed Mobility Assessment Supine to Sit Supine to Sit Standby Assistance PT-Transfer Assessment Sit to and From Stand Sit to and from Stand Standby Assistance,Contact Guard Assistance,1 Person Assistance,Use of Upper Extremities Equipment Transfer Assistive Device Gait Belt,Front Wheeled Walker Orthotic/Prosthetic Devices or Brace: No Transfers Transfer Destination Chair Transfer Technique ambulated Transfer Ability Level of Assist Contact Guard Assistance,1 Person Assistance,Use of Upper Extremities Comments Mobility Comments pt in room with spouse. educated with anterior hip precautions. pt completed supine to sit SBA . sit to stand CGA and ambulated in room using FWW CGA ~ 15 ft. caregiver training conducted. educated spouse on how to use safety belt and how to assist pt. spouse was able to put safety belt on pt and ambulated pt in the hallway SBA to CGA ~ 50 ft. educated on stair climbing techniques. pt completed up/ down steps holding on to R rail with B hands and spouse assisting CGA. pt repeated x 2 sets. assisted pt back to her room. ambulated from w/c to chair using FWW SBA. positioned pt on the chair. call light and table placed within reach. Gait Assessment Gait Gait Assistance Required: Standby Assistance,Contact Guard Assist Distance (Feet) 50 Able to Maintain Weight Bearing Status Yes During Gait Assistive Devices Assistive Device Gait Belt,Front Wheeled Walker Orthotic/Prosthetic Devices or Brace: No Gait Deviations General Gait Pattern Decreased Feet Clearance Factors Limiting Gait Function Factors Limiting Gait Function Decreased Activity Tolerance, Decreased Strength,Limited Range of Motion,Pain,Poor Balance,Poor Safety Awareness Stair Climbing Assessment Evaluation Level of Assist On Stairs Contact Guard Assistance Devices Stair Climbing Assistive Devices Right Railing Technique/Endurance Stair Climbing Direction Ascend and Descend Stair Climbing Technique Step to Step Number of Steps Climbed 3 Query Text: Stair Climbing Set # Repetitions (reps) 2 PT-Balance Assessment Sitting Balance and Reactions Static Sitting Balance Ability Normal Dynamic Sitting Balance Ability Good Standing Balance and Reactions Static Standing Balance Ability Fair Dynamic Standing Balance Ability Fair Device Used FWW M5 PT-IP Objective Assessments Start: 06/17/22 16:15 Freq: NEEDED Status: Discharge Protocol: Document 06/17/22 14:40 AB (Rec: 06/17/22 16:40 AB [id number]) Orientation Orientation/Cognition Level of Alertness Alert Orientation Name,Place,Situation Language Function Ability No Deficits Noted Safety Awareness Decreased Safety Awareness Memory Description Short Term Impaired Gross Range of Motion Lower Extremity ROM Assessment Within Functional Limits Strength Lower Extremity Strength Assessment Right Impaired Hip 3+/5 Knee 4-/5 Coordination Assessment Gross Coordination Gross Coordination WNL Sensation Assessment Sensation Gross Sensation WNL Muscle Tone Muscle Tone WNL Yes M6 PT-IP Treatment Start: 06/17/22 16:15 Freq: NEEDED Status: Discharge Protocol: Document 06/17/22 14:40 AB (Rec: 06/17/22 16:40 AB [id number]) Physical Therapy Treatment Education Education Provided Precautions,Weight Bearing Status,Post-Op Packet,Safety M7 PT-IP Assessment and Plan Start: 06/17/22 16:15 Freq: NEEDED Status: Discharge Protocol: Document 06/17/22 14:40 AB (Rec: 06/17/22 16:40 AB [email or web address]) PT Summary Assessment and Plan Potential Rehabilitation Potential Good Status of Condition at Evaluation Stable Summary Impairments Pain,ROM,Strength,Balance, Coordination,Sensation,Tone, Cognition,Bed Mobility, Transfers,Gait,Activity Tolerance Assessment Summary pt requiring SBA to CGA with mobility. caregiver training conducted and spouse was able to assist pt safely. pt wants to go home today. Goals Bed Mobility Goal Independent Transfer Goal Independent,Front Wheeled Walker Gait Goal Independent,Front Wheel Walker Gait Distance 200 Other Goals up/down 4 steps R rail SBA Days to Meet Goals 5 Frequency of Treatment Frequency Of Treatment Twice a Day Treatment Plan Physical Therapy Treatment Plan Bed Mobility Training,Transfer Training,Gait Training, Therapeutic Exercise,Balance Retraining,Post Op Education, Discharge Planning,Hot or Cold Pack,Neuromuscular Re-ed, Coordination Retraining,Manual Therapy Precautions Anterior Hip Precautions No Hip Extension,No Hip External Rotation Weight Bearing Status Weight Bearing Status Weight Bear as Tolerated Allowed Weight Bearing Amount (enter % RLE WBAT or #) (%) Recommendations To Nursing Amount of Assist Needed 1 Person Assist Discharge Recommendations PT Discharge Recommendations Home with Assistance, Outpatient PT Transportation Needs at Discharge Private Vehicle
[2022-06-17] MEDS: OXYCODONE IR 5 MG TABLET PO (15:01)
== END 2022-06-17 16:20 | disposition home or self-care (01) ==
LOC: OR 07:14 → AC 07:14
PROVIDERS: Referring Provider Orthopaedic Surgery; Visit Provider Orthopaedic Surgery
PROC: (CPT 27130; principal; 2022-06-17 08:45)
DX: M16.11 Unilateral primary osteoarthritis, right hip (principal); I10 Essential (primary) hypertension
CPT/HCPCS: 27130; 73502; 76000; 87635; 97161; 97530; C1776; C9803; C9290; J0690; J1100; J2250; J2405; J2704; J3010